=== PATIENT | female | born 1950 | race African-American/Black ===

== ENCOUNTER 2018-07-11 23:53 | Emergency (ER) | payer OTHER, MEDICAID ==
[~2018-07-11] VITALS: Ht 160 cm; Wt 49.9 kg
[2018-07-12 00:40] VITALS: BP_SYST 122
--- NOTE | 2018-07-12 01:00 | NUR ---
Placed in room 4 . Placed on hollow handle bench worker, blood pressure machine and pulse oximeter. To gown for exam. Side rails up. Report given to SEBASTIEN.
--- NOTE | 2018-07-12 01:03 | NUR ---
Dr. [place] bedside for pt eval
[2018-07-12] MEDS ORDERED: HYDROcodone/ACETAMIN 5-325 MG TAB (NORCO/ VICODIN) PO ONE (01:15)
[2018-07-12 01:30] VITALS: BP_SYST 122
--- NOTE | 2018-07-12 01:30 | NUR ---
Patient c/o bilteral leg/arm bites from her dogs. Patient was trying to protect another male that was getting bit by her dogs as he passed by the yard. Patient denies SOB, chest pain, n/v.
--- NOTE | 2018-07-12 01:58 | NUR ---
Patient does not wish to proceed with medical care recommended by . Patient given information related to possible complications, up to and including , which could occur as a result of leaving hospital at this time. Patient verbalizes understanding of risks involved leaving against medical advice. Patient has signed AMA form.
== END 2018-07-12 01:59 | disposition left against medical advice (07) ==
LOC: SED 23:53
DX: S81.831A Puncture wound without foreign body, right lower leg, initial encounter (principal); S81.832A Puncture wound without foreign body, left lower leg, initial encounter; S41.131A Puncture wound without foreign body of right upper arm, initial encounter; S41.132A Puncture wound without foreign body of left upper arm, initial encounter; W54.0XXA Bitten by dog, initial encounter; Y93.89 Activity, other specified; Y92.89 Other specified places as the place of occurrence of the external cause; Y99.8 Other external cause status
CPT/HCPCS: 99283